=== PATIENT | male | born 1985 | race Caucasian/White ===

== ENCOUNTER 2025-05-17 10:05 | Emergency (ER) | payer OTHER ==
[2025-05-17] MEDS: Ketorolac 30 MG/ML SDV IM ONE (10:43)
[2025-05-17 10:58] LABS: APPEARANCE,URINE SLIGHTLY CLOUDY (CLEAR); GLUCOSE,URINE NEGATIVE (NEGATIVE); OCCULT BLOOD,URINE SMALL (NEGATIVE)
[2025-05-17 11:21] LABS: SQUAMOUS EPITHELIAL CELLS,UR OCCASIONAL /HPF
== END 2025-05-17 11:36 | disposition home or self-care (01) ==
LOC: LB.ED 10:05
DX: S43.52XA Sprain of left acromioclavicular joint, initial encounter (principal); S20.212A Contusion of left front wall of thorax, initial encounter; W16.312A Fall into other water striking water surface causing other injury, initial encounter
CPT/HCPCS: 71101-LT; 81001; 96372; 99283; J1885